=== PATIENT | male | born 1965 | race Caucasian/White ===

== ENCOUNTER 2016-02-16 11:16 | Observation (INO) | payer OTHER ==
--- NOTE | 2016-02-16 11:47 | ED ---
Psych HPI - General Chief Complaint: Psychiatric Symptoms Stated Complaint: ETOH Time Seen by Provider: 02/16/16 11:16 Source: patient, EMS Mode of arrival: EMS - History of Present Illness Initial Comments: This is a 50-year-old male with a history of alcohol abuse who is brought in by EMS with police escort and is now under petition for depression and suicidal thoughts. Patient states she's been drinking distress over the past 3 days he recently lost his mother's grandmother and his dog about 2 weeks ago. He also is about to lose his apartment. He's been drinking especially heavy last several days. He did voice suicidal thoughts but no definite plan. No reports of nausea vomiting fevers chills or sweats. No trauma. MD Complaint: suicidal ideation, feels depressed, other - Related Data Previous Rx's Medication Instructions Recorded Citalopram Hydrobromide [CeleXA] 20 mg PO DAILY #30 tab 12/20/15 Famotidine [Pepcid] 20 mg PO BID #30 tab 12/20/15 Folic Acid 1 mg PO DAILY@1200 #30 tab 12/20/15 LORazepam [Ativan] 1 mg PO Q8HR PRN #20 tab 12/20/15 QUEtiapine [SEROquel] 50 mg PO HS #30 tab 12/20/15 Thiamine [Vitamin B-1] 100 mg PO BID@1200,1700 #30 tab 12/20/15 traZODone HCL [Desyrel] 50 mg PO HS #30 tab 12/20/15 Allergies Allergy/AdvReac Type Severity Reaction Status Date / Time No Known Allergies Allergy Verified 02/16/16 11:40 Review of Systems ROS Statement: Those systems with pertinent positive or pertinent negative responses have been documented in the HPI. ROS Other: All systems not noted in ROS Statement are negative. Past Medical History Past Medical History: Osteoarthritis (OA) Additional Past Medical History / Comment(s): Alcoholism, depression, anxiety, nicotine addiction/smoking History of Any Multi-Drug Resistant Organisms: Unobtainable Past Surgical History: Orthopedic Surgery Additional Past Surgical History / Comment(s): Left fifth finger amputated from work related accident Past Anesthesia/Blood Transfusion Reactions: No Reported Reaction Past Psychological History: Anxiety, Depression Additional Psychological History / Comment(s): Possible bipolar Smoking Status: Current every day smoker Past Alcohol Use History: Abuse, Heavy Additional Past Alcohol Use History / Comment(s): Pt states he drinks about 24 beers daily since he was 10 years old Past Drug Use History: None Reported Additional Drug Use History / Comment(s): Pt reports drinking one case a day of beer - Past Family History Mother Family Medical History: Cancer Additional Family Medical History / Comment(s): Lung CA General Exam - General Exam Comments Initial Comments: Is a well-developed well-nourished awake alert but very lethargic male he does have the smell of alcohol conjoiners on his breath Limitations: physical limitation General appearance: alert, lethargic Head exam: Present: atraumatic, normocephalic, normal inspection Eye exam: Present: normal appearance, PERRL, EOMI. Absent: scleral icterus, conjunctival injection, periorbital swelling ENT exam: Present: normal exam, mucous membranes moist Neck exam: Present: normal inspection. Absent: tenderness, meningismus, lymphadenopathy Respiratory exam: Present: normal lung sounds bilaterally. Absent: respiratory distress, wheezes, rales, rhonchi, stridor Cardiovascular Exam: Present: regular rate, normal rhythm, normal heart sounds. Absent: systolic murmur, diastolic murmur, rubs, gallop, clicks GI/Abdominal exam: Present: soft, normal bowel sounds. Absent: distended, tenderness, guarding, rebound, rigid, pulsatile mass Extremities exam: Present: normal inspection, full ROM, normal capillary refill , other (Left fifth finger amputation as described). Absent: tenderness, pedal edema, joint swelling, calf tenderness Back exam: Present: normal inspection Neurological exam: Present: alert, oriented X3, CN II-XII intact. Absent: motor sensory deficit Psychiatric exam: Present: depressed, flat affect, suicidal ideation Skin exam: Present: warm, dry, intact, normal color. Absent: rash Course Vital Signs 02/16/16 11:20 Temperature 97.0 F L Pulse Rate 84 Respiratory 16 Rate Blood Pressure 138/79 O2 Sat by Pulse 94 L Oximetry Medical Decision Making - Medical Decision Making The patient was found have an extremely high alcohol level. He will be admitted for evaluation of acute alcohol intoxication with potential withdrawal also he'll be on suicide precautions. - Lab Data Result diagrams: 02/16/16 11:45 02/16/16 11:45 Lab Results 01/05/2902/16/16 02/16/16 Range/Units 11:45 11:45 11:55 WBC 10.6 (3.8-10.6) k/uL RBC 5.26 (4.30-5.90) m/uL Hgb 16.9 (13.0-17.5) gm/dL Hct 49.9 (39.0-53.0) % MCV 94.9 (80.0-100.0) fL MCH 32.1 (25.0-35.0) pg MCHC 33.8 (31.0-37.0) g/dL RDW 13.8 (11.5-15.5) % Plt Count 186 (150-450) k/uL Neutrophils % 50 % Lymphocytes % 39 % Monocytes % 5 % Eosinophils % 4 % Basophils % 0 % Neutrophils # 5.3 (1.3-7.7) k/uL Lymphocytes # 4.1 (1.0-4.8) k/uL Monocytes # 0.5 (0-1.0) k/uL Eosinophils # 0.4 (0-0.7) k/uL Basophils # 0.0 (0-0.2) k/uL Sodium 150 H (137-145) mmol/L Potassium 4.1 (3.5-5.1) mmol/L Chloride 107 (98-107) mmol/L Carbon Dioxide 27 (22-30) mmol/L Anion Gap 16 mmol/L BUN 6 L (9-20) mg/dL Creatinine 0.64 L (0.66-1.25) mg/dL Est GFR (MDRD) Af Amer >60 (>60 ml/min/1.73 sqM) Est GFR (MDRD) Non-Af >60 (>60 ml/min/1.73 sqM) Glucose 121 H (74-99) mg/dL Calcium 9.0 (8.4-10.2) mg/dL Magnesium 1.9 (1.6-2.3) mg/dL Total Bilirubin 0.4 (0.2-1.3) mg/dL AST 45 (17-59) U/L ALT 47 (21-72) U/L Alkaline Phosphatase 79 (38-126) U/L Total Protein 6.9 (6.3-8.2) g/dL Albumin 4.3 (3.5-5.0) g/dL Amylase 58 (30-110) U/L Urine Opiates Screen Not Detected (NotDetected) Ur Oxycodone Screen Not Detected (NotDetected) Urine Methadone Screen Not Detected (NotDetected) Ur Propoxyphene Screen Not Detected (NotDetected) Ur Barbiturates Screen Not Detected (NotDetected) U Tricyclic Antidepress Not Detected (NotDetected) Ur Phencyclidine Scrn Not Detected (NotDetected) Ur Amphetamines Screen Not Detected (NotDetected) U Methamphetamines Scrn Not Detected (NotDetected) U Benzodiazepines Scrn Not Detected (NotDetected) Urine Cocaine Screen Not Detected (NotDetected) U Marijuana (THC) Screen Not Detected (NotDetected) Serum Alcohol 402 mg/dL Disposition Clinical Impression: Depression, Alcohol intoxication, Suicidal ideation Disposition: ADMITTED IP TO THIS [facility] Condition: Stable
[2016-02-16 11:59] LABS: Basophils % (A) 0 %; CH 32.4; CHCM 34.3; Eosinophils # (A) 0.4 k/uL (0-0.7); Eosinophils % (A) 4 %; HCT 49.9 % (39.0-53.0); HDW 2.34; HGB 16.9 gm/dL (13.0-17.5); Luc # (Auto) 0.24; Luc % (Auto) 2; Lymphocytes # (A) 4.1 k/uL (1.0-4.8); Lymphocytes % (A) 39 %; MCH 32.1 pg (25.0-35.0); MCHC 33.8 g/dL (31.0-37.0); MCV 94.9 fL (80.0-100.0); Mean Platelet Volume 6.5; Monocytes # (A) 0.5 k/uL (0-1.0); Monocytes % (A) 5 %; Neutrophils # (A) 5.3 k/uL (1.3-7.7); Neutrophils % (A) 50 %; RBC 5.26 m/uL (4.30-5.90); RDW 13.8 % (11.5-15.5); WBC 10.6 k/uL (3.8-10.6); WBC (Perox) 10.85
[2016-02-16 12:10] LABS: ALT 47 U/L (21-72); AST 45 U/L (17-59); Alkaline Phosphatase 79 U/L (38-126); Amylase 58 U/L (30-110); Anion Gap 16 mmol/L; Blood Urea Nitrogen 6 mg/dL (9-20); Carbon Dioxide 27 mmol/L (22-30); Chloride 107 mmol/L (98-107); Glucose 121 mg/dL (74-99); Magnesium 1.9 mg/dL (1.6-2.3); Non-African American GFR(MDRD) >60 (>60 ml/min/1.73 sqM); Potassium 4.1 mmol/L (3.5-5.1); Sodium 150 mmol/L (137-145); Total Bilirubin 0.4 mg/dL (0.2-1.3); Total Protein 6.9 g/dL (6.3-8.2)
[2016-02-16 12:25] LABS: Alcohol 402 mg/dL
[2016-02-16] MEDS ORDERED: NALOXONE 0.4 MG/ML 1 ML VIAL IV PRN (13:19)
[2016-02-16] MEDS ORDERED: LORazepam 2 MG/ML SYRINGE IV PRN ×2 (13:25)
[2016-02-16] MEDS ORDERED: ZIPRASIDONE 20 MG VIAL IM STA (13:25)
[2016-02-16] MEDS ORDERED: THIAMINE 100 MG/ML 2 ML VIAL IM STA (13:25)
[2016-02-16] MEDS ORDERED: LORazepam 2 MG/ML SYRINGE IM STA (13:26)
[2016-02-16] MEDS ORDERED: SODIUM CHLORIDE 0.9% 1,000 ML IV SCH (13:30)
[2016-02-16] MEDS: LORazepam 2 MG/ML SYRINGE IV PRN ×2 (19:49→22:55)
[2016-02-16] MEDS: THIAMINE 100 MG TAB PO SCH (22:55)
[2016-02-16] MEDS: QUEtiapine 50 MG TAB PO SCH (22:55)
[2016-02-16] MEDS: FAMOTIDINE 20 MG TAB PO SCH (22:55)
[2016-02-16] MEDS: traZODone HCL 50 MG TAB PO SCH (22:56)
[2016-02-17] MEDS: LORazepam 2 MG/ML SYRINGE IV PRN ×4 (02:18→19:00)
[2016-02-17] MEDS: FAMOTIDINE 20 MG TAB PO SCH ×2 (08:46→20:51)
[2016-02-17] MEDS: CITALOPRAM HYDROBROMIDE 20 MG TAB PO SCH (08:46)
[2016-02-17] MEDS: THIAMINE 100 MG TAB PO SCH ×2 (08:46→18:55)
[2016-02-17] MEDS: FOLIC ACID 1 MG TAB PO SCH (08:46)
--- NOTE | 2016-02-17 09:15 | P.CON ---
Psychiatric Consult - . Consult date: 02/17/16 Consult:: IDENTIFYING DATA: Mr. Jose is a 50-year-old single male brought to the ER by EMS with a police escort . The police crime scene technician completed the petition. He told the ER physician that he's been drinking over the last several days because he "recently lost his mother's and his grandmother and his dog 2 weeks ago." HISTORY OF PRESENT ILLNESS: He was discharged from our psychiatric unit on 12/30 with the diagnoses of bipolar 2 disorder depressed, alcohol use disorder and nicotine use disorder. He stated he did not have insurance to continue with his prescribed medications. He resumed drinking alcohol consuming on the average "6 to7" 24 ounce cans of beer. His blood alcohol level on admission to the ER was 402. His complaints were similar to those from his admission in December 2015. He complained about feeling depressed and having suicidal ideation. He is depressed about the of his grandmother, his mother and the of his dog. 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 He has been having suicidal thoughts that include jumping off a bridge or overdosing on medications. He is having moderate to severe alcohol withdrawal symptoms with you a scores ranging from 8-15. PAST PSYCHIATRIC HISTORY: He has had "4 or 5" psychiatric hospitalizations; the most recent was on the psychiatric unit at [facility] in [place]. He alleged that he kept his initial appointment with [facility] after his discharge from our unit. His first admission was at [facility] "many years ago". He stated that he is had a "couple" of suicide attempts. The first was "in the early 80s or 90s" where he jumped off a bridge in [facility]. He sustained fracture of the ribs and his treatment included a psychiatric admission. He stated he also attempted to overdose on pills "in the early 80s". PAST MEDICAL HISTORY: He denied history of significant medical problems. ALLERGIES: NO KNOWN DRUG ALLERGIES. SUBSTANCE USE HISTORY: He has a history of alcohol use problems. He began drinking in at the age of 10. He alleges that he began to have problems with his alcohol use "in the sixth grade". As a result of his alcohol use he was missing school and had poor coping performance. He has attended a "couple" of substance abuse treatment programs; the first was in his 20s. The last was in 2014. He went to [facility] for 27 days then transferred to [facility] were he remained for 9 months. He was vague about the length of abstinence after leaving [facility]. FAMILY PSYCHIATRIC/SUBSTANCE USE HISTORY: He stated both his brother and sister have alcohol and mental health problems.. SOCIAL HISTORY: His born in [place]. His father by suicide at age 26 when he was 2 years old. His mother moved to [facility] after she remarried. His mother had 3 children from her second . He is single and has no children. He left school in the 10th grade and did not obtain a GED. He has held intermittent semiskilled employment. He is currently unemployed and has no income. MENTAL STATUS EXAM: He presented as a disheveled appearing moderately obese 50- year-old male who is laying comfortably in bed. He was wearing diapers. Maintained eye contact and attended to the interview. He had no distinguishing features or prominent physical abnormalities. He is a blunted facial expression. He was alert and oriented to person, place and time. He was slightly restless. I did not evaluate his gait. He had no abnormal involuntary movements. His speech was spontaneous with slight decrease in rate , rhythm and volume. He had no articulation difficulties. His affect was depressed and unreactive. He describes suicidal ideation or wishes. He denied homicidal ideation. He described depressive cognitions such as hopelessness and helplessness. He denied obsessions or ruminations. He denied ideas of reference or paranoid ideation. His thinking was concrete but his associations were coherent and logical. He denied auditory, visual or tactile hallucinations. Global impression of intellect is average to below. He has awareness of his alcohol use problems and expressed an interest in obtaining treatment. IMPRESSIONS: Alcohol use disorder severe, alcohol withdrawal, mood disorder due to alcohol, rule out a primary depressive disorder PLAN: Continue [facility] protocol, transfer to psychiatry when medically stable. 02/17/16 08:45
[2016-02-17] MEDS: SODIUM CHLORIDE 0.45% 1,000 ML IV SCH (15:41)
[2016-02-17] MEDS: HYDROcodone/APAP 7.5-325MG 1 EACH TAB PO PRN ×2 (16:54→21:00)
--- NOTE | 2016-02-17 19:01 | HP ---
DATE OF ADMISSION: Patient is a 50-year-old gentleman with alcohol abuse history. He came in with alcohol intoxication. Patient also has severe depression and suicidal thoughts. Psychiatry evaluated the patient. They are recommending inpatient psychiatric admission. Once patient ( ) patient is not having significant withdrawals at this point of time. His last drink was yesterday. Patient drinks about 24 beers along with some whiskey, because of which ( ) worsening withdrawals overnight, because of which I will watch him overnight, and if his withdrawals are not significant, patient will be transferred to the psychiatric floor. Patient denied any fever or chills. Patient denied any abdominal pain. Patient denied any nausea or vomiting. Patient was a bit nauseous. Denied any abdominal pain. REVIEW OF SYSTEMS: CONSTITUTIONAL: No fever, no malaise, no fatigue. HEENT: No recent visual problems or hearing problems. Denied any sore throat. CARDIOVASCULAR: No chest pain, orthopnea, PND, no palpitations, no syncope. PULMONARY: No shortness of breath, no cough, no hemoptysis. GASTROINTESTINAL: No diarrhea, no nausea, no vomiting, no abdominal pain. Normoactive bowel sounds. NEUROLOGICAL: No headaches, no weakness, no numbness. HEMATOLOGICAL: Denies any bleeding or petechiae. GENITOURINARY: Denies any burning micturition, frequency, or urgency. MUSCULOSKELETAL/RHEUMATOLOGICAL: Denies any joint pain, swelling, or any muscle pain. ENDOCRINE: Denies any polyuria or polydipsia. PSYCHIATRIC: As described in HPI. The rest of the 14 point review of systems is negative. Home medications include: 1. Citalopram. 2. Famotidine. 3. Folic acid. 4. Lorazepam. 5. Seroquel. 6. Thiamine. 7. Trazodone. ALLERGIES: NO KNOWN DRUG ALLERGIES. Past medical history is significant for: 1. Osteoarthritis. 2. Alcoholism. 3. Depression. 4. Anxiety disorder. 5. Nicotine dependence. 6. Bipolar disorder. Patient continues to smoke a pack per day. Alcohol abuse history, as mentioned above. Denied any drug abuse. FAMILY HISTORY: Mother had lung cancer. PHYSICAL EXAMINATION: VITAL SIGNS: Temperature 97.0, pulse of 84, respiratory rate of 16. Blood pressure is 138/79. Saturating at 94% on room air. GENERAL: The patient is alert and oriented x3, not in any acute distress. Well developed, well nourished. HEENT: Pupils are round and equally reacting to light. EOMI. No scleral icterus. No conjunctival pallor. Normocephalic, atraumatic. No pharyngeal erythema. No thyromegaly. CARDIOVASCULAR: S1 and S2 present. No murmurs, rubs, or gallops. PULMONARY: Chest is clear to auscultation, no wheezing or crackles. ABDOMEN: Soft, nontender, nondistended, normoactive bowel sounds. No palpable organomegaly. MUSCULOSKELETAL: No joint swelling or deformity. EXTREMITIES: No cyanosis, clubbing, or pedal edema. NEUROLOGICAL: Gross neurological examination did not reveal any focal deficits. SKIN: No rashes. LABORATORY DATA: CBC, CMP are abnormal for mildly elevated sodium of 150. Patient's hematocrit is elevated because of smoking, probably, and chronic hypoxemia. ASSESSMENT AND PLAN: 1. Alcohol intoxication. 2. Alcohol withdrawals. 3. Suicidal ideation. 4. Depression. 5. Hypernatremia secondary to IV normal saline. PLAN: Patient will be switched to half normal saline. Patient will be monitored for alcohol withdrawals and treat alcohol withdrawals appropriately if he has any. Patient will continue to need one-on-one sitter until he is transferred out to psychiatric floor. Will watch him overnight and possibly discharge to psychiatric floor tomorrow. Will repeat kidney function ( ) tomorrow.
[2016-02-17] MEDS: traZODone HCL 50 MG TAB PO SCH (20:51)
[2016-02-17] MEDS: QUEtiapine 50 MG TAB PO SCH (20:51)
[2016-02-18 08:05] VITALS: RESP 18
[2016-02-18] MEDS: CITALOPRAM HYDROBROMIDE 20 MG TAB PO SCH (08:14)
[2016-02-18] MEDS: FAMOTIDINE 20 MG TAB PO SCH (08:14)
[2016-02-18] MEDS: HYDROcodone/APAP 7.5-325MG 1 EACH TAB PO PRN (08:23)
[2016-02-18] MEDS ORDERED: NICOTINE 21MG/24HR PATCH TRANSDERM SCH (09:00)
[2016-02-18 09:34] LABS: Basophils % (A) 0 %; CH 32.8; CHCM 34.4; Eosinophils # (A) 0.6 k/uL (0-0.7); Eosinophils % (A) 7 %; HCT 47.9 % (39.0-53.0); HDW 2.35; HGB 15.9 gm/dL (13.0-17.5); Luc # (Auto) 0.13; Luc % (Auto) 1; Lymphocytes # (A) 2.4 k/uL (1.0-4.8); Lymphocytes % (A) 25 %; MCH 31.7 pg (25.0-35.0); MCHC 33.1 g/dL (31.0-37.0); MCV 95.8 fL (80.0-100.0); Mean Platelet Volume 7.7; Monocytes # (A) 0.5 k/uL (0-1.0); Monocytes % (A) 6 %; Neutrophils # (A) 5.9 k/uL (1.3-7.7); Neutrophils % (A) 61 %; RDW 13.4 % (11.5-15.5); WBC 9.7 k/uL (3.8-10.6)
[2016-02-18 10:05] LABS: Anion Gap 8 mmol/L; Blood Urea Nitrogen 9 mg/dL (9-20); Calcium 9.2 mg/dL (8.4-10.2); Carbon Dioxide 27 mmol/L (22-30); Chloride 105 mmol/L (98-107); Glucose 109 mg/dL (74-99); Non-African American GFR(MDRD) >60 (>60 ml/min/1.73 sqM); Potassium 3.8 mmol/L (3.5-5.1); Sodium 140 mmol/L (137-145)
[2016-02-18] MEDS: FOLIC ACID 1 MG TAB PO SCH (11:53)
[2016-02-18] MEDS: THIAMINE 100 MG TAB PO SCH (11:53)
[2016-02-18 12:23] VITALS: BP 119/79; PULSE 65; TEMP 97.9
[2016-02-18] MEDS: SODIUM CHLORIDE 0.45% 1,000 ML IV SCH (16:14)
--- NOTE | 2016-02-19 10:54 | DS ---
DATE OF ADMISSION: 02/16/2016 DATE OF DISCHARGE: 02/18/2016 Patient is admitted with alcohol intoxication. We watched him for one night for alcohol withdrawal. Patient does not have any significant withdrawal symptoms. The patient will be transferred to ( ). The patient had suicidal ideation. Patient will be transferred to psychiatric floor. The patient was seen and examined on the day of discharge. Vital signs stable. PHYSICAL EXAMINATION: GENERAL: The patient is alert and oriented x3, not in any acute distress. Well developed, well nourished. HEENT: Pupils are round and equally reacting to light. EOMI. No scleral icterus. No conjunctival pallor. Normocephalic, atraumatic. No pharyngeal erythema. No thyromegaly. CARDIOVASCULAR: S1 and S2 present. No murmurs, rubs, or gallops. PULMONARY: Chest is clear to auscultation, no wheezing or crackles. ABDOMEN: Soft, nontender, nondistended, normoactive bowel sounds. No palpable organomegaly. MUSCULOSKELETAL: No joint swelling or deformity. EXTREMITIES: No cyanosis, clubbing, or pedal edema. NEUROLOGICAL: Gross neurological examination did not reveal any focal deficits. SKIN: No rashes. FINAL DIAGNOSES: 1. Alcohol intoxication. 2. Alcohol withdrawal. 3. Depression. 4. Suicidal ideation. For discharge medications, please refer to my depart summary. I will see him in the psychiatry unit.
== END 2016-02-18 12:45 ==
LOC: EC 11:16 → 3OBS 13:25
PROVIDERS: ADMIT Internal Medicine; ATTEND Internal Medicine
DX: F10.239 Alcohol dependence with withdrawal, unspecified (principal); F10.229 Alcohol dependence with intoxication, unspecified; F31.81 Bipolar II disorder; R45.851 Suicidal ideations; E87.0 Hyperosmolality and hypernatremia; F41.9 Anxiety disorder, unspecified; F17.200 Nicotine dependence, unspecified, uncomplicated; M19.90 Unspecified osteoarthritis, unspecified site; E66.9 Obesity, unspecified; Z68.27 Body mass index [BMI] 27.0-27.9, adult; Z89.022 Acquired absence of left finger(s); Z79.899 Other long term (current) drug therapy; Z80.1 Family history of malignant neoplasm of trachea, bronchus and lung
CPT/HCPCS: 99285; 96372 ×2; 82075; 36415; 80053; 80048; 82150; 83735; 85025 ×2; 80306; 80320; G0378 ×3; S4990; J2060 ×2; J3486; 96361; 96374; 96376

== ENCOUNTER 2016-02-18 10:15 | Inpatient (IN) | payer MEDICAID ==
[2016-02-18] MEDS ORDERED: MAGNESIUM HYDROXIDE 2,400 MG/10 ML CUP PO PRN (13:22)
[2016-02-18] MEDS ORDERED: ACETAMINOPHEN TAB 325 MG TAB PO PRN (13:22)
[2016-02-18] MEDS ORDERED: MAG HYDROX/AL HYDROX/SIMETH 30 ML CUP PO PRN (13:22)
[2016-02-18 14:09] VITALS: BMI 28.0
[2016-02-18] MEDS: THIAMINE 100 MG TAB PO SCH (16:21)
[2016-02-18] MEDS: LORazepam 1 MG TAB PO PRN ×2 (16:26→23:30)
[2016-02-18] MEDS: HYDROcodone/APAP 5-325MG 1 EACH TAB PO PRN ×2 (17:51→23:30)
[2016-02-18] MEDS: FAMOTIDINE 20 MG TAB PO SCH (20:53)
[2016-02-18] MEDS ORDERED: QUEtiapine 50 MG TAB PO SCH (21:00)
[2016-02-19] MEDS: NICOTINE 21MG/24HR PATCH TRANSDERM SCH (08:22)
[2016-02-19] MEDS: FAMOTIDINE 20 MG TAB PO SCH ×2 (08:23→20:40)
[2016-02-19] MEDS: CITALOPRAM HYDROBROMIDE 20 MG TAB PO SCH (08:23)
[2016-02-19] MEDS: LORazepam 1 MG TAB PO PRN ×2 (08:24→15:14)
[2016-02-19] MEDS: HYDROcodone/APAP 5-325MG 1 EACH TAB PO PRN ×2 (08:24→15:11)
[2016-02-19] MEDS: THIAMINE 100 MG TAB PO SCH ×2 (11:48→17:16)
[2016-02-19] MEDS: FOLIC ACID 1 MG TAB PO SCH (11:48)
--- NOTE | 2016-02-19 18:12 | P.HP ---
Psychiatric H&P - . H&P Date: 02/19/16 History & Physical: Allergies Allergy/AdvReac Type Severity Reaction Status Date / Time No Known Allergies Allergy Verified 02/18/16 14:18 Vital Signs Temp 97.7 F 02/19/16 06:47 Pulse 72 02/19/16 06:47 Resp 18 02/19/16 06:47 BP 107/52 02/19/16 06:47 Pulse Ox Intake & Output 02/18/16 02/19/16 02/19/16 18:59 06:59 18:59 Weight 83.5 kg 02/19/16 18:04 IDENTIFYING DATA: 50-year-old single male patient HPI: Patient admitted to the inpatient psychiatric unit as a transfer from the observation unit. He states that prior to coming in the hospital he started hallucinating, visual hallucinations of seeing animals. He has had this experience before. He states that they're coming through the bedroom window, [place]. He says that alcohol was a factor. He's had a lot of recent stressors including losses of his grandmother, mom and his dog over the last 3 months. He has been depressed. He states that he called the police when he was having these hallucinations. Regarding any thoughts of suicide he said that it has crossed his mind, he realizes that he would be hurting people that he loved. He was on the observation unit for 2 days. He also says he had a recent stressor being pulled over on a moped without a license. He states he did not sleep well last night. He reports that his typically on Seroquel 150 mg at home. PAST PSYCHIATRIC HISTORY: He's had no current outpatient treatment. He states that the Celexa is new for him. He has been on Seroquel 150 more grams at bedtime. PMH: History of shoulder injury and cut his pinky off at work. ALLERGIES: No known ALLERGIES. MEDICATIONS: Tylenol when necessary, [place] when necessary, Maalox when necessary, Celexa, Pepcid, folate, Ativan when necessary, milk of magnesia when necessary, Habitrol, Seroquel, vitamin B1 CHEMICAL DEPENDENCY HISTORY: Patient reports that he had been drinking heavily recently. Says he has been drinking daily, beer. He has had hallucinations with withdrawals in the past. His thinking about going to a three-quarter home in [place]. He states that he has been to [address] [facility] before. He does not use any drugs. FAMILY PSYCHIATRIC HISTORY: Dad with depression, committed suicide when the patient was 2 years of age. FAMILY CHEMICAL DEPENDENCY HISTORY: None known at this time. SOCIAL HISTORY: No current work. He does spray painting for . He is single, never been . He has a 27-year-old daughter. No grandchildren. MENTAL STATUS EXAM: He is alert and cooperative with the interview. His speech is fluent, not rapid or pressured. Thought processes are organized. His mood is described as "not bad." He denies any thoughts of harm to self or others. He denies any current hallucinations. Cognitively appears to be grossly intact. His insight is adequate, judgment shows evidence of recent impairment. STRENGTHS/WEAKNESSES: Strengths-seeking treatment; weaknesses-coping skills, substance use INTELLECTUAL FUNCTIONING: average IMPRESSIONS: AXIS I : Unspecified depressive disorder; alcohol use disorder AXIS II: deferred AXIS III: history of shoulder injury and cut his pinky off at work AXIS IV: multiple losses AXIS V: 30 PLAN: patient is admitted to the inpatient psychiatric unit [facility] on a voluntary basis. He will placed on SP 15 minute precautions. Baseline laboratory workup will be done the patient and medical consultation will be ordered. We'll continue to cover this patient for Dr. Jonas through the weekend. We'll titrate Seroquel 100 mg at bedtime to titrate more to his former dose, this may also given benefit for insomnia. Maintain Celexa as current. Estimated length of stay is 3-5 days. Prognosis is guarded. We' ll monitor regarding any suicidal ideations.
--- NOTE | 2016-02-19 18:49 | CONS ---
DATE OF CONSULTATION: Patient is a 50-year-old ( ) admitted to the hospital with alcohol abuse history and alcohol intoxication and the patient is admitted to the hospital for ( ), the patient was medically cleared and subsequently discharged to psychiatric facility. Reason medicine was consulted is secondary to for medical clearance. Patient ( ), the patient does not have any ( ). Patient denied any fever, chills. the patient denied any nausea, vomiting, abdominal pain. The patient denied any lightheadedness. The patient denied any dysuria, nausea or vomiting, cough. REVIEW OF SYSTEMS: CONSTITUTIONAL: No fever, no malaise, no fatigue. HEENT: No recent visual problems or hearing problems. Denied any sore throat. CARDIOVASCULAR: No chest pain, orthopnea, PND, no palpitations, no syncope. PULMONARY: No shortness of breath, no cough, no hemoptysis. GASTROINTESTINAL: No diarrhea, no nausea, no vomiting, no abdominal pain. Normoactive bowel sounds. NEUROLOGICAL: No headaches, no weakness, no numbness. HEMATOLOGICAL: Denies any bleeding or petechiae. GENITOURINARY: Denies any burning micturition, frequency, or urgency. MUSCULOSKELETAL/RHEUMATOLOGICAL: Denies any joint pain, swelling, or any muscle pain. ENDOCRINE: Denies any polyuria or polydipsia. PSYCHIATRY: Refer to psychiatry evaluation. The rest of the 14 point review of systems is negative. Home medications: 1. ( ). 2. Famotidine. 3. Folic acid. 4. Lorazapam. 5. Seroquel. 6. Thiamin. 7. Trazodone. ALLERGIES: No known drug allergies. PAST MEDICAL HISTORY: Osteoarthritis, alcoholism, depression, anxiety disorder, nicotine dependence and bipolar disorder. FAMILY HISTORY: Mother had lung cancer. Patient continues to smoke 1 pack per day. Denied any alcohol abuse or any drug abuse. PHYSICAL EXAMINATION: VITAL SIGNS: Temperature afebrile, pulse of 84, respiratory rate of 16, blood pressure is 140/75. Saturating at 94% on room air. GENERAL: The patient is alert and oriented x3, not in any acute distress. Well developed, well nourished. HEENT: Pupils are round and equally reacting to light. EOMI. No scleral icterus. No conjunctival pallor. Normocephalic, atraumatic. No pharyngeal erythema. No thyromegaly. CARDIOVASCULAR: S1 and S2 present. No murmurs, rubs, or gallops. PULMONARY: Chest is clear to auscultation, no wheezing or crackles. ABDOMEN: Soft, nontender, nondistended, normoactive bowel sounds. No palpable organomegaly. MUSCULOSKELETAL: No joint swelling or deformity. EXTREMITIES: No cyanosis, clubbing, or pedal edema. NEUROLOGICAL: Gross neurological examination did not reveal any focal deficits. SKIN: No rashes. LABORATORY DATA: None available. On discharge, there was no significant abnormality that was appreciated. ASSESSMENT AND PLAN: 1. Depression ( ). 2. Alcohol withdrawal, which is better. 3. Hypernatremia secondary to ( ) which is expected to improve although I do not have any labs available at this time.
[2016-02-19] MEDS: QUEtiapine 100 MG TAB PO SCH (20:40)
[2016-02-20] MEDS: CITALOPRAM HYDROBROMIDE 20 MG TAB PO SCH (08:19)
[2016-02-20] MEDS: HYDROcodone/APAP 5-325MG 1 EACH TAB PO PRN ×3 (08:20→20:44)
[2016-02-20] MEDS: FAMOTIDINE 20 MG TAB PO SCH ×2 (08:20→20:42)
[2016-02-20] MEDS: NICOTINE 21MG/24HR PATCH TRANSDERM SCH (08:23)
[2016-02-20] MEDS: LORazepam 1 MG TAB PO PRN ×2 (10:10→20:45)
[2016-02-20] MEDS: FOLIC ACID 1 MG TAB PO SCH (12:09)
[2016-02-20] MEDS: THIAMINE 100 MG TAB PO SCH ×2 (12:09→16:05)
--- NOTE | 2016-02-20 20:39 | P.PN ---
Progress Note - Text Interval history: Patient is seen in cross coverage today for Dr. Jonas. He reports that his mood is doing better. He inquires regarding the [place] being every 6 hours as needed, we discussed changing the scheduling to this with a maximum of 3 doses per day. He says the Seroquel was better at 100 mg last night, he slept better. He has started the Celexa. He does not seem to voice any adverse psychotropic medication side effects. Mental status exam: He is alert and cooperative with the interview. His speech is fluent, not rapid or pressured. Thought processes organized. His mood seems to be improved. He denies any thoughts of harm to self or others. He denies any hallucinations. No evidence of active psychosis or agitation. Plan: We'll maintain Seroquel and Celexa as current. We'll monitor for any medication side effects. Dr. oJnas to initiate care this patient starting tomorrow.
[2016-02-20] MEDS: QUEtiapine 100 MG TAB PO SCH (20:42)
[2016-02-21 06:36] VITALS: TEMP 97.5
[2016-02-21] MEDS: CITALOPRAM HYDROBROMIDE 20 MG TAB PO SCH (10:01)
[2016-02-21] MEDS: NICOTINE 21MG/24HR PATCH TRANSDERM SCH (10:01)
[2016-02-21] MEDS: FAMOTIDINE 20 MG TAB PO SCH ×2 (10:01→21:10)
[2016-02-21] MEDS: LORazepam 1 MG TAB PO PRN (10:03)
[2016-02-21] MEDS: HYDROcodone/APAP 5-325MG 1 EACH TAB PO PRN ×3 (10:03→22:25)
[2016-02-21 11:14] VITALS: BP 132/80; PULSE 108; RESP 18
[2016-02-21] MEDS: THIAMINE 100 MG TAB PO SCH ×2 (13:16→16:15)
[2016-02-21] MEDS: FOLIC ACID 1 MG TAB PO SCH (13:16)
--- NOTE | 2016-02-21 16:08 | P.PN ---
Progress Note - Text CLINICAL PROBLEMS: Mr. Jose is a 50-year-old male who has a history of alcohol use disorder. We transferred him from medicine service where he presented with acute intoxication and visual hallucinations. He is requesting discharge to a three-quarter [place] in [facility]. 24 HOUR EVENTS: He has shown no signs or symptoms of alcohol withdrawal. His CIWA scores have been 0 or 1. He is denying auditory hallucinations. EXAMINATION: He presented as a casually groomed 50-year-old male who was pleasant on approach. He maintained eye contact and attended to the interview. He was missing the small finger from his left hand but otherwise had no prominent physical abnormalities. He had a blunted but bright facial expression. He was alert and oriented to person, place and time. He showed no abnormality of psychomotor activity. He had a normal gait. His speech was spontaneous with normal rate, rhythm and volume. His affect was blunted but stable and appropriate. He denied suicidal ideation or wishes. He denied homicidal ideation. He denied depressive cognitions such as hopelessness , helplessness or worthlessness. He denied obsessions, ruminations and phobias. He did not express ideas reference or paranoid ideation. He expressed no delusional thoughts. His thinking was abstract and associations were coherent and logical. He denied hallucinations and did not appear to be responding to internal stimuli. PERTINENT DATA: web worker informed the team that he has a warrant for his arrest. The courts request to be notified when he is discharged. ASSESSMENT: [facility] with [facility]-induced visual hallucinations. His alcohol withdrawal was uncomplicated by delirium or seizures. He is currently not showing any alcohol withdrawal symptoms. He is denying depression or suicidal ideation. Unfortunately he has a warrant for his arrest and we ordered notify the court when he is discharged. PLAN: Continue Celexa 20 mg daily, folic acid 1 mg daily, vitamin B1 100 mg daily, quetiapine 100 mg at bedtime. Continue 15 minute checks. Consider discharge on 02/22/2016.
[2016-02-21] MEDS: QUEtiapine 100 MG TAB PO SCH (21:10)
[2016-02-22] MEDS: NICOTINE 21MG/24HR PATCH TRANSDERM SCH (08:27)
[2016-02-22] MEDS: CITALOPRAM HYDROBROMIDE 20 MG TAB PO SCH (08:27)
[2016-02-22] MEDS: FAMOTIDINE 20 MG TAB PO SCH (08:27)
[2016-02-22] MEDS: HYDROcodone/APAP 5-325MG 1 EACH TAB PO PRN (08:29)
[2016-02-22] MEDS: LORazepam 1 MG TAB PO PRN (08:29)
--- NOTE | 2016-02-22 11:32 | P.DS ---
Providers Date of admission: 02/18/16 12:47 Attending physician: Shade Jonas MD Consults: 02/18/16 13:22 Consult Physician Routine Consulting Provider: Jono Tena Consult Reason/Comments: H and P and medical management Do you want consulting provider notified?: Yes Primary care physician: Stated None - Discharge Diagnosis(es) (1) Alcohol intoxication Current Visit: No Status: Resolved Priority: High (2) Depression Current Visit: No Status: Resolved Priority: Medium (3) Suicidal ideation Current Visit: No Status: Resolved Priority: Medium Hospital Course: He is a 50-year-old male who has a history of an alcohol use disorder. The police brought her to the ER after he called emergency services complaining of suicidal ideation. He was discharged from our unit in December 2015 with a diagnosis of bipolar 2 disorder, alcohol use disorder and nicotine use disorder. He alleges she did not have insurance to continue his prescribed medication and resumed drinking alcohol consuming on the average is 76-724 ounce cans of beer per day. His blood alcohol level in the ER was 402. He was admitted to observation unit for the treatment of acute alcohol intoxication. His alcohol was uncomplicated and he was transferred to this unit on 02/19/2016. He described experiencing visual hallucinations when he was intoxicated prior to admission. He described multiple animals and had such an implicit belief that he went into the kitchen and attempt to "feeding the animals." On presentation to psychiatry he denied thoughts of self-harm. He describes feeling "okay" but denied severe feelings of depression. He denied auditory and visual hallucinations. We provided a biopsychosocial assessment. We continued Celexa 20 mg today but increased at bedtime dose of quetiapine to 100 mg at bedtime. We also prescribed lorazepam 1 mg every 8 hours when necessary for alcohol withdrawal symptoms. He denied alcohol withdrawal symptoms during the brief stay in the psychiatric unit. He participated in therapeutic groups and activities. He demonstrated no behavioral dyscontrol or self-harm behaviors. The plan was to discharge him to a three-quarter house. However we received disorder from the court to have an discharge in the custody of local authorities to be arraigned for driving without a license. The social media strategist and I met with him and explained the situation. He stated that he was not surprised and had expected "this may happen". Patient Condition at Discharge: Good Plan - Discharge Summary New Discharge Prescriptions: Citalopram Hydrobromide [CeleXA] 20 mg PO DAILY #30 tab Famotidine [Pepcid] 20 mg PO BID #30 tab Folic Acid 1 mg PO DAILY@1200 #30 tab Nicotine 21Mg/24Hr Patch [Habitrol] 1 patch TRANSDERM DAILY #14 patch QUEtiapine [SEROquel] 100 mg PO HS #30 tab Thiamine [Vitamin B-1] 100 mg PO BID@1200,1700 #30 tab Discharge Medication List Citalopram Hydrobromide [CeleXA] 20 mg PO DAILY #30 tab 02/22/16 [Rx] Famotidine [Pepcid] 20 mg PO BID #30 tab 02/22/16 [Rx] Folic Acid 1 mg PO DAILY@1200 #30 tab 02/22/16 [Rx] Nicotine 21Mg/24Hr Patch [Habitrol] 1 patch TRANSDERM DAILY #14 patch 02/22/16 [ Rx] QUEtiapine [SEROquel] 100 mg PO HS #30 tab 02/22/16 [Rx] Thiamine [Vitamin B-1] 100 mg PO BID@1200,1700 #30 tab 02/22/16 [Rx] Discharge Disposition: OTHER INSTITUTION NOT DEFINED
[2016-02-22] MEDS: FOLIC ACID 1 MG TAB PO SCH (12:05)
[2016-02-22] MEDS: THIAMINE 100 MG TAB PO SCH (12:05)
== END 2016-02-22 14:14 | DRG 897 ==
LOC: 3MHU 12:47
PROVIDERS: ADMIT Psychiatry & Neurology Psychiatry; ATTEND Psychiatry & Neurology Psychiatry
DX: F10.229 Alcohol dependence with intoxication, unspecified (principal); E87.0 Hyperosmolality and hypernatremia; R45.851 Suicidal ideations; F31.81 Bipolar II disorder; G47.00 Insomnia, unspecified; Y90.8 Blood alcohol level of 240 mg/100 ml or more; M19.90 Unspecified osteoarthritis, unspecified site; F17.200 Nicotine dependence, unspecified, uncomplicated; Z79.899 Other long term (current) drug therapy; Z81.8 Family history of other mental and behavioral disorders

== ENCOUNTER 2016-08-16 19:36 | Emergency (ER) | payer MEDICAID, OTHER ==
--- NOTE | 2016-08-16 19:39 | ED ---
General Adult HPI - General Source: RN notes reviewed, old records reviewed <Pramod Taylor - Last Filed: 08/16/16 19:44> <Campos Pastor - Last Filed: 08/17/16 12:50> - General Stated complaint: Mental Health Time Seen by Provider: 08/16/16 19:38 - History of Present Illness Initial comments: This is a 50-year-old male to the ER for evaluation today. Patient coming in by PD and EMS for psychiatric evaluation. (Pramod Taylor) - Related Data Home Medications Medication Instructions Recorded Confirmed No Known Home Medications [No 08/17/16 08/17/16 Known Home Medications] Allergies Allergy/AdvReac Type Severity Reaction Status Date / Time No Known Allergies Allergy Verified 02/18/16 14:18 Review of Systems ROS Other: All systems not noted in ROS Statement are negative. <Pramod Taylor - Last Filed: 08/16/16 19:44> ROS Other: All systems not noted in ROS Statement are negative. <Campos Pastor - Last Filed: 08/17/16 12:50> ROS Statement: Those systems with pertinent positive or pertinent negative responses have been documented in the HPI. Past Medical History Past Medical History: Asthma, Osteoarthritis (OA) Additional Past Medical History / Comment(s): Alcoholism, nicotine addiction/ smoking History of Any Multi-Drug Resistant Organisms: None Reported Past Surgical History: Orthopedic Surgery Additional Past Surgical History / Comment(s): Left fifth finger amputated from work related accident Past Anesthesia/Blood Transfusion Reactions: No Reported Reaction Past Psychological History: Anxiety, Bipolar, Depression Additional Psychological History / Comment(s): Pt resides alone in an apartment. He states he sees a councelor at [facility]. He does not drive. He walks to [facility]. Smoking Status: Current every day smoker Past Alcohol Use History: Abuse, Heavy Additional Past Alcohol Use History / Comment(s): Pt states he drinks about 24 beers daily since he was 10 years old and/or sometimes liquor-up to a fifth a day. Past Drug Use History: None Reported Additional Drug Use History / Comment(s): Pt reports drinking one case a day of beer - Past Family History Mother Family Medical History: Cancer Additional Family Medical History / Comment(s): Lung CA <Pramod Taylor - Last Filed: 08/16/16 19:44> General Exam General appearance: alert, in no apparent distress Head exam: Present: atraumatic, normocephalic, normal inspection Eye exam: Present: normal appearance, PERRL, EOMI. Absent: scleral icterus, conjunctival injection, periorbital swelling ENT exam: Present: normal exam, mucous membranes moist Neck exam: Present: normal inspection. Absent: tenderness, meningismus, lymphadenopathy Respiratory exam: Present: normal lung sounds bilaterally. Absent: respiratory distress, wheezes, rales, rhonchi, stridor Cardiovascular Exam: Present: regular rate, normal rhythm, normal heart sounds. Absent: systolic murmur, diastolic murmur, rubs, gallop, clicks GI/Abdominal exam: Present: soft, normal bowel sounds. Absent: distended, tenderness, guarding, rebound, rigid Extremities exam: Present: normal inspection, full ROM, normal capillary refill. Absent: tenderness, pedal edema, joint swelling, calf tenderness Back exam: Present: normal inspection Neurological exam: Present: alert, oriented X3, CN II-XII intact Psychiatric exam: Present: normal affect, normal mood Skin exam: Present: warm, dry, intact, normal color. Absent: rash <Pramod Taylor - Last Filed: 08/16/16 19:44> Course <Pramod Taylor - Last Filed: 08/16/16 19:44> <Campos Pastor - Last Filed: 08/17/16 12:50> Vital Signs 08/16/16 08/17/16 08/17/16 19:56 04:39 08:53 Temperature 97.9 F 97.8 F 97.7 F Pulse Rate 111 H 60 74 Respiratory 22 16 15 Rate Blood Pressure 128/81 109/68 130/70 O2 Sat by Pulse 95 100 94 L Oximetry - Reevaluation(s) Reevaluation #1: 08/16/16 19:44 Patient's medically clear for psychiatric evaluation (Pramod Taylor) Medical Decision Making <Pramod Taylor - Last Filed: 08/16/16 19:44> <Campos Pastor - Last Filed: 08/17/16 12:50> - Medical Decision Making Patient seen by mental health services who recommends discharge. Patient reevaluated by myself, Dr. Pastor. Patient resting comfortably in bed. Patient denies suicidal ideation and does contract for safety. (Campos Pastor) - Lab Data Lab Results 08/16/16 Range/Units 21:40 Urine Opiates Screen Not Detected (NotDetected) Ur Oxycodone Screen Not Detected (NotDetected) Urine Methadone Screen Not Detected (NotDetected) Ur Propoxyphene Screen Not Detected (NotDetected) Ur Barbiturates Screen Not Detected (NotDetected) U Tricyclic Antidepress Not Detected (NotDetected) Ur Phencyclidine Scrn Not Detected (NotDetected) Ur Amphetamines Screen Not Detected (NotDetected) U Methamphetamines Scrn Not Detected (NotDetected) U Benzodiazepines Scrn Not Detected (NotDetected) Urine Cocaine Screen Not Detected (NotDetected) U Marijuana (THC) Screen Not Detected (NotDetected) Disposition <Pramod Taylor - Last Filed: 08/16/16 19:44> <Campos Pastor - Last Filed: 08/17/16 12:50> Clinical Impression: Depression, Alcohol intoxication Disposition: HOME SELF-CARE Condition: Stable Instructions: Abuse of Alcohol (ED), Depression (ED) Additional Instructions: Discontinue alcohol use. Please follow-up with mental health services as directed. Return for thoughts of self-harm or worsening symptoms. Referrals: None,Stated [REFERRING] - 1-2 days Jony Mckeon MD [REFERRING] - 1-2 days
[2016-08-16] MEDS ORDERED: LORazepam 1 MG TAB PO STA ×2 (21:47→22:23)
[2016-08-17] MEDS ORDERED: IBUPROFEN 600 MG TAB PO STA (09:33)
[2016-08-17 13:13] VITALS: RESP 16
[2016-08-17 13:55] VITALS: BP 144/65; PULSE 71; TEMP 98.1
== END 2016-08-17 13:57 | disposition home or self-care (01) ==
LOC: EC 19:36
DX: F32.9 Major depressive disorder, single episode, unspecified (principal); F10.129 Alcohol abuse with intoxication, unspecified; F41.9 Anxiety disorder, unspecified; F17.210 Nicotine dependence, cigarettes, uncomplicated
CPT/HCPCS: 80306; 82075; 99284